=== PATIENT | female | born 1970 | race Two or more races ===

== ENCOUNTER 2016-08-08 13:34 | Emergency (ER) | payer SELFPAY ==
[~2016-08-08] VITALS: Ht 170.2 cm; Wt 83.9 kg
[2016-08-08 13:47] VITALS: BP 132/101
[2016-08-08] MEDS ORDERED: KETOROLAC TROMETH 60MG/2ML VIAL IM ONE (17:45)
== END 2016-08-08 18:43 | disposition home or self-care (01) ==
LOC: EDUNIT# 13:34 → ER 13:47
DX: S16.1XXA Strain of muscle, fascia and tendon at neck level, initial encounter (principal); S46.912A Strain of unspecified muscle, fascia and tendon at shoulder and upper arm level, left arm, initial encounter; V43.52XA Car driver injured in collision with other type car in traffic accident, initial encounter; Y93.89 Activity, other specified; Y99.8 Other external cause status; Y92.89 Other specified places as the place of occurrence of the external cause
CPT/HCPCS: 72040; 73030; 96372; 99284; J1885